=== PATIENT | female | born 1950 | race Caucasian/White ===

== ENCOUNTER 2017-06-15 23:20 | Emergency (ER) | payer OTHER ==
[~2017-06-15 23:20] MED LIST: A/B OTIC15 ML; CLONAZEPAM0.5 MG PO; FLO4 PO; IMITREX50 MG PO; LOSARTAN POTASS25 M1 PO; NITROSTAT0.4 MG SL; NORCO1 TA2 PO; PROTONIX40 MG PO; XARELTO15 M1 PO; ZOFRAN ODT8 MG PO
[2017-06-16 00:36] LABS: BASOPHIL % 0.7 % (0-2); PLATELET COUNT 275 x10^3mcL (130-400); RED CELL DISTRIBUTION WIDTH 13.9 % (11.5-14.5)
[2017-06-16 00:49] LABS: UA SPECIFIC GRAVITY 1.015 (1.005-1.035); microscopic required? YES; urine erythrocyte 3+ (NEGATIVE)
[2017-06-16 01:08] LABS: CARBON DIOXIDE 27.4 mmol/L (21-32); CHLORIDE SERUM 102 mmol/L (98-107); CREATININE SERUM 0.9 mg/dL (0.6-1.0); GFR1 > 60 mL/min; GLUCOSE SERUM 121 mg/dL (74-106); POTASSIUM SERUM 3.5 mmol/L (3.5-5.1); SODIUM SERUM 133 mmol/L (136-145)
[2017-06-16 03:10] VITALS: BP 130/60
== END 2017-06-16 03:10 | disposition home or self-care (01) ==
LOC: ED 23:20
PROVIDERS: Emergency Medicine
DX: N23 Unspecified renal colic (principal); N13.30 Unspecified hydronephrosis; E11.9 Type 2 diabetes mellitus without complications; G43.909 Migraine, unspecified, not intractable, without status migrainosus; Z87.442 Personal history of urinary calculi; Z88.8 Allergy status to other drugs, medicaments and biological substances
CPT/HCPCS: J1885

== ENCOUNTER 2019-10-07 16:28 | Emergency (ER) | payer OTHER ==
[~2019-10-07] VITALS: Ht 162.6 cm; Wt 76.7 kg
[2019-10-07 16:39] VITALS: Ht 162.6 cm; Wt 76.7 kg
[2019-10-07 17:35] LABS: BASOPHIL % 0.4 % (0-2); PLATELET COUNT 286 x10^3mcL (130-400); RED CELL DISTRIBUTION WIDTH 13.6 % (11.5-14.5)
[2019-10-07 17:42] LABS: ALBUMIN 3.5 g/dL (3.4-5.0); ALKALINE PHOSPHATASE 64 U/L (46-116); ALT/SGPT 19 U/L (14-59); AST/SGOT 13 U/L (15-37); BILIRUBIN TOTAL 0.34 mg/dL (0.20-1.00); CALCIUM 9.2 mg/dL (8.5-10.1); CHLORIDE SERUM 105 mmol/L (98-107); CHOLESTEROL 134 mg/dL (<200); CHOLESTEROL/HDL RATIO 4.8; CREATININE SERUM 1.2 mg/dL (0.6-1.0); GLUCOSE SERUM 122 mg/dL (74-106); HDL CHOLESTEROL 28 mg/dL (40-60); POTASSIUM SERUM 4.5 mmol/L (3.5-5.1); SODIUM SERUM 142 mmol/L (136-145); TOTAL PROTEIN, SERUM 7.4 g/dL (6.4-8.2); TRIGLYCERIDES 125 mg/dL (<150)
[2019-10-07 17:46] LABS: CARBON DIOXIDE 27.4 mmol/L (21-32)
[2019-10-07 17:57] LABS: T3 TOTAL 1.43 ng/mL
[2019-10-07 18:20] LABS: FREE T4 0.99 ng/dL (0.76-1.46); FREE THYROXINE INDEX 2.3 ug/dL (1.4-4.5); T4(THYROXINE) 7.9 ug/dL (4.7-13.3)
[2019-10-07 18:53] VITALS: BP 118/53
== END 2019-10-07 18:53 | disposition home or self-care (01) ==
LOC: ED 16:28
PROVIDERS: Specialist
DX: H81.10 Benign paroxysmal vertigo, unspecified ear (principal); E11.9 Type 2 diabetes mellitus without complications; Z87.442 Personal history of urinary calculi; Z91.041 Radiographic dye allergy status
CPT/HCPCS: 82962; 83880; 84439; Q0092